=== PATIENT | female | born 1995 | race Caucasian/White ===

== ENCOUNTER → 2017-04-17 | Outpatient (CLI) | payer MEDICAID ==
--- NOTE | 2017-04-18 06:58 | Diagnostic Imaging Report ---
PROCEDURE: US OB SINGLE FETUS <14 WKS. TECHNIQUE: Multiple real-time grayscale images were obtained over the gravid uterus in various projections. INDICATION: Normal . Gestational age evaluation. COMPARISON: None. FINDINGS: Single live intrauterine with a crown rump length corresponding to an 8 week, 6 day gestation. heart rate 167 bpm. No free fluid. No mass or fluid collection in the adnexa. IMPRESSION: Single live intrauterine consistent with an 8 week, 6 day gestation. Dictated by: Dictated on workstation # [id number]
== END ==
LOC: RAD 15:43
PROVIDERS: ATTEND Family Medicine
DX: Z36.87 Encounter for antenatal screening for uncertain dates (principal); Z3A.08 8 weeks gestation of pregnancy
CPT/HCPCS: 76801

== ENCOUNTER → 2017-07-03 | Outpatient (CLI) | payer MEDICAID ==
--- NOTE | 2017-07-03 11:48 | Diagnostic Imaging Report ---
INDICATION: survey. TECHNIQUE: Multiple real-time grayscale images were obtained over the gravid uterus. COMPARISON: 04/17/2017. FINDINGS: There is a single live fetus in a cephalic presentation. The placenta is anterior. The amniotic fluid volume is normal. Cervical length is 4.9 cm. survey demonstrates kidneys, bladder, and stomach to be unremarkable. brain is unremarkable. The four-chamber heart view was not seen on today's study. There is a three-vessel cord. Cord insertion is unremarkable. The spine is unremarkable. Biometrical measurements are as follows: Biparietal 4.61 cm, age 20 weeks 0 days. Head circumference 17.11 cm, age 19 weeks 5 days. Abdominal circumference 14.91 cm, age 20 weeks 2 days. Femur length 3.48 cm, age 21 weeks 0 days. Sonographic estimate age: 20 weeks 2 days. Sonographic estimated date of delivery: 11-18-17. Estimated Weight: 354 gm (+/- 52 gm). LMP percentile: 78%. heart rate: 142 beats per minute. number: 1 of 1. IMPRESSION: Single live IUP at approximately 20 weeks gestational age, demonstrating normal interval growth when compared with prior study from April 2017. Dictated by: Dictated on workstation # [id number]
== END ==
LOC: RAD 10:05
PROVIDERS: ATTEND Family Medicine
DX: Z36.89 Encounter for other specified antenatal screening (principal); Z3A.20 20 weeks gestation of pregnancy
CPT/HCPCS: 76805

== ENCOUNTER → 2017-09-14 | Outpatient (CLI) | payer MEDICAID ==
--- NOTE | 2017-09-14 16:07 | Diagnostic Imaging Report ---
INDICATION: Follow-up four-chamber heart. TECHNIQUE: Multiple real-time grayscale images were obtained over the gravid uterus. COMPARISON: 07/03/2017. FINDINGS: There is a single live fetus in a cephalic presentation. The placenta is anterior. The amniotic fluid volume is normal. heart rate was recorded at 150 beats per minute. Four-chamber heart view is visualized today and unremarkable. IMPRESSION: Unremarkable limited OB ultrasound demonstrating a normal-appearing four-chamber heart view. Dictated by: Dictated on workstation # [id number]
== END ==
LOC: RAD 14:52
PROVIDERS: ATTEND Family Medicine
DX: Z34.93 Encounter for supervision of normal pregnancy, unspecified, third trimester (principal); Z3A.30 30 weeks gestation of pregnancy
CPT/HCPCS: 76816

== ENCOUNTER 2017-11-27 19:24 | Inpatient (IN) | payer MEDICAID ==
[2017-11-27] VITALS (14 sets, daily range): BP systolic 142–185; BP diastolic 77–113
[~2017-11-27] VITALS: Ht 167.6 cm; Wt 113.9 kg
[2017-11-27] MEDS ORDERED: LACTATED RINGERS 1,000 ML IV ONE (19:26)
--- OUTSIDE RECORDS SUMMARY | 2017-11-27 19:28 | XMS REPORT ---
Author Author CA BUTLER [facility] Address [address] [place] [address] Care Team Providers Care News Operations Manager Name Role Phone LUKE CA Unavailable PROBLEMS Type Condition ICD9-CM Code [id number]-FB Code Onset Dates Condition Status SNOMED Code Problem Gastro-esophageal reflux disease without esophagitis K21.9 Active 249720465 ALLERGIES No Information ENCOUNTERS Encounter Location Date Diagnosis [facility] [id number] [place] [address] 96941- 4561 Nov, [facility] [id number] [place] [address] 31589- 9858 Nov, [facility] [address] 18381- 6767 Nov, [facility] [id number] [place] [address] 14586- 4130 October, [facility] [id number] [place] [address] 89827- 5914 October, [facility] [id number] [place] [address] 85534- 5977 October, care, first in third trimester Z34.03 ; 33 weeks gestation of Z3A.33 and Hyperpigmented skin lesion L81.9 [facility] [id number] [place] [address] 18893- 1495 18 Sep, 2017 Third trimester Z34.93 ; Encounter for immunization Z23 and 30 weeks gestation of Z3A.30 [facility] [id number] [place] [address] 26393 -9052 17 Sep, 2017 Pharyngitis, unspecified etiology J02.9 [facility] [id number] [place] [address] 78283- 9159 Sep, Third trimester Z34.93 ; 28 weeks gestation of Z3A.28 and Abnormal ultrasound O28.[address] 63863- 9991 Sep, [address] 96523- 9163 Aug, Second trimester Z34.92 ; 27 weeks gestation of Z3A.27 ; Gastro-esophageal reflux disease without esophagitis K21.9 ; Diseases of the digestive system complicating , second trimester O99.612 and Cough R05 [facility] [address] [address] Jul, Viral URI J06.9 [facility] [address] 7[address] -5101 Jul, Body aches R52 and Viral URI J06.[address] 44488- 2513 08 Jul, 2017 Second trimester Z34.92 and 21 weeks gestation of Z3A.21 [id number] [place] [address] 21873- 2532 Jun, 16 weeks gestation of Z3A.16 and Second trimester Z34.92 [address] [id number] [place] [address] 10452- 1324 May, [address] 28471- 8947 May, 12 weeks gestation of Z3A.12 and Second trimester Z34.92 [address] [id number] [place] [address] 79446- 1220 May, [address] 49507- 3216 Apr, Normal , first Z34.00 and 8 weeks gestation of Z3A.08 [facility] [address], [place] [address] 08 Apr, 2017 Visit for TB skin test Z11.1 [facility] [address], [place] [address] 27 Mar, 2017 Screening, deficiency anemia, iron Z13.0 [facility] [id number] [place] [address] 44232- 0481 Mar, [facility] [id number] [address] 6654 Mar, [facility] [id number] [place] [address] 00216- 8399 Mar, [facility] [id number] [place] [address] 20106- 7952 Mar, Encounter for test, result unknown Z32.00 [facility] [address], [place] [address] 16 Feb, 2013 IMMUNIZATIONS No Known Immunizations SOCIAL HISTORY Never Assessed REASON FOR VISIT test (walk-in) PLAN OF CARE VITAL SIGNS MEDICATIONS Unknown Medications RESULTS Name Result Date Reference Range TEST, URINE (IN HOUSE) 2017-03-15 RESULTS Positive Lot # [id number] Control + Exp date 06/2018 PROCEDURES Procedure Date Ordered Result Body Site URINE TEST Mar 15, 2017 INSTRUCTIONS MEDICATIONS ADMINISTERED No Known Medications
--- OUTSIDE RECORDS SUMMARY | 2017-11-27 19:28 | XMS REPORT ---
Author Author ALMA LEMON Organization [facility] Address [address] [place] [address] Care Team Providers Care Termite Technician Name Role Phone ALMA LEMON Unavailable PROBLEMS Type Condition ICD9-CM Code NLW07-WE Code Onset Dates Condition Status SNOMED Code Problem Gastro-esophageal reflux disease without esophagitis K21.9 Active 076466279 ALLERGIES No Information ENCOUNTERS Encounter Location Date Diagnosis [facility] [address] 13117- 5638 Nov, [facility] [address] 38982- 1387 Nov, [facility] [address] 78707- 5254 Nov, Third trimester Z34.93 [facility] [address] 99272- 4777 October, Third trimester Z34.93 [facility] [address] [id number] October, Encounter for dental examination Z01.20 [facility] [address] 36058- 5930 October, Third trimester Z34.93 and 35 weeks gestation of Z3A.35 [facility] [address] 70022- 7245 October, Pigmented skin lesion suspicious for malignant neoplasm L81.9 and Acute bilateral low back pain without sciatica M54.5 [facility] [id number] [place] [address] 01774- 2232 October, care, first in third trimester Z34.03 ; 33 weeks gestation of Z3A.33 and Hyperpigmented skin lesion L81.[address] 39897- 1738 18 Sep, 2017 Third trimester Z34.93 ; Encounter for immunization Z23 and 30 weeks gestation of Z3A.30 [facility] [address] [address]81 17 Sep, 2017 Pharyngitis, unspecified etiology J02.9 [place] [address] 85028- 9342 04 Sep, 2017 Third trimester Z34.93 ; 28 weeks gestation of Z3A.28 and Abnormal ultrasound O28.[address] 13417- 8044 Sep, [address] 16844- 8098 Aug, Second trimester Z34.92 ; 27 weeks gestation of Z3A.27 ; Gastro-esophageal reflux disease without esophagitis K21.9 ; Diseases of the digestive system complicating , second trimester O99.612 and Cough R05 [facility] [address] 30[address] -[address]441 Jul, Viral URI J06.9 [facility] [address] 75537 -7265 Jul, Body aches R52 and Viral URI J06.[address] 34896- 8030 Jul, Second trimester Z34.92 and 21 weeks gestation of Z3A.[address] 69539- 7441 Jun, 16 weeks gestation of Z3A.16 and Second trimester Z34.[address] 57158- 2968 May, [facility] [address], [place] [address] May, 12 weeks gestation of Z3A.12 and Second trimester Z34.92 [facility] [address] [address] 25[address] May, [place] [id number] [place] [address] 85267- 2474 Apr, Normal , first Z34.00 and 8 weeks gestation of Z3A.08 [facility] [address], [place] [address] Apr, Visit for TB skin test Z11.1 [place] [id number] [place] [address] 86538- 9194 Mar, Screening, deficiency anemia, iron Z13.0 [place] [id number] [place] [address] 28362- 0229 Mar, [place] [id number] [place] [address] 49934- 8629 Mar, [place] [id number] [place] [address] 98090- 3047 Mar, [place] [id number] [place] [address] 00326- 2601 Mar, Encounter for test, result unknown Z32.00 [facility] [id number] [address] Feb, IMMUNIZATIONS No Known Immunizations SOCIAL HISTORY Never Assessed REASON FOR VISIT Lab results PLAN OF CARE VITAL SIGNS MEDICATIONS Unknown Medications RESULTS No Results PROCEDURES No Known procedures INSTRUCTIONS MEDICATIONS ADMINISTERED No Known Medications MEDICAL (GENERAL) HISTORY Type Description Date Medical History Anemia
--- OUTSIDE RECORDS SUMMARY | 2017-11-27 19:28 | XMS REPORT ---
Author Author ALMA LEMON Organization [facility] Address [address] [place] [address] Care Team Providers Care Regional Extension Service Specialist Name Role Phone ALMA LEMON Unavailable PROBLEMS Type Condition ICD9-CM Code KXJ68-VA Code Onset Dates Condition Status SNOMED Code Problem Gastro-esophageal reflux disease without esophagitis K21.9 Active 148541849 ALLERGIES No Known Allergies ENCOUNTERS Encounter Location Date Diagnosis [facility] [id number] [place] [address] 74653- 9018 Nov, [facility] [id number] [place] [address] 39376- 2212 Nov, [facility] [id number] [place] [address] 29316- 4964 Nov, [facility] [id number] [place] [address] 91129- 3422 October, [facility] [id number] [place] [address] 34409- 0558 October, [facility] [id number] [place] [address] 05279- 0883 October, Pigmented skin lesion suspicious for malignant neoplasm L81.9 and Acute bilateral low back pain without sciatica M54.5 [facility] [address] [place] [address] 79055- 4938 October, care, first in third trimester Z34.03 ; 33 weeks gestation of Z3A.33 and Hyperpigmented skin lesion L81.9 [facility] [address], [place] [address]- 139[address] 18 Sep, 2017 Third trimester Z34.93 ; Encounter for immunization Z23 and 30 weeks gestation of Z3A.30 [facility] [id number] [place] [address] 97833 -1114 17 Sep, 2017 Pharyngitis, unspecified etiology J02.9 [place] [id number] [place] [address] 97281- 6587 04 Sep, 2017 Third trimester Z34.93 ; 28 weeks gestation of Z3A.28 and Abnormal ultrasound O28.[address] 29258- 2751 Sep, [place] [id number] [place] [address] 20051- 6178 Aug, Second trimester Z34.92 ; 27 weeks gestation of Z3A.27 ; Gastro-esophageal reflux disease without esophagitis K21.9 ; Diseases of the digestive system complicating , second trimester O99.612 and Cough R05 [facility] [place] [id number] [place] [address] 35426 -4680 Jul, Viral URI J06.9 [facility] [id number] [place] [address] 13920 -5940 16 Jul, 2017 Body aches R52 and Viral URI J06.9 [address] [id number] [place] [address] 87453- 5918 08 Jul, 2017 Second trimester Z34.92 and 21 weeks gestation of Z3A.21 [place] [id number] [place] [address] 86847- 4126 Jun, 16 weeks gestation of Z3A.16 and Second trimester Z34.92 [place] [address] 50474- 8883 May, [id number] [place] [address] 68942- 0520 May, 12 weeks gestation of Z3A.12 and Second trimester Z34.92 [id number] [address]- 1623 May, [facility] [id number] [place] [address] 77286- 4075 Apr, Normal , first Z34.00 and 8 weeks gestation of Z3A.08 [facility] [address] [place] [address] 23973 -1466 Apr, Visit for TB skin test Z11.1 [place] [id number] [place] [address] 03631- 6197 Mar, Screening, deficiency anemia, iron Z13.0 [place] [id number] [place] [address] 10172- 1941 Mar, [place] [id number] [place] [address] 09862- 4463 Mar, [place] [id number] [place] [address] 86098- 1152 Mar, [facility] [id number] [place] [address] 85147- 0067 Mar, Encounter for test, result unknown Z32.00 [place] [id number] [place] [address] 75599- 2088 Feb, IMMUNIZATIONS No Known Immunizations SOCIAL HISTORY Never Assessed REASON FOR VISIT PLAN OF CARE VITAL SIGNS MEDICATIONS Medication Instructions Dosage Frequency Start Date End Date Duration Status 28-0.8 MG Active RESULTS No Results PROCEDURES No Known procedures INSTRUCTIONS MEDICATIONS ADMINISTERED No Known Medications
--- OUTSIDE RECORDS SUMMARY | 2017-11-27 19:28 | XMS REPORT ---
Author Author ALMA LEMON Organization [facility] Address [address] [place] [address] Care Team Providers Care Assistant Professor Of Music Name Role Phone ALMA LEMON Unavailable PROBLEMS Type Condition ICD9-CM Code OLW08-MY Code Onset Dates Condition Status SNOMED Code Problem Gastro-esophageal reflux disease without esophagitis K21.9 Active 700407225 ALLERGIES No Information ENCOUNTERS Encounter Location Date Diagnosis [facility] [address] 02184- 0517 Nov, [facility] [address] 65078- 4002 Nov, [facility] [address] 75983- 2347 Nov, Third trimester Z34.93 [facility] [address] 27437- 9931 October, Third trimester Z34.93 [facility] [address] [id number] October, Encounter for dental examination Z01.20 [facility] [address] 87659- 7405 October, Third trimester Z34.93 and 35 weeks gestation of Z3A.35 [facility] [address] 70369- 3381 October, Pigmented skin lesion suspicious for malignant neoplasm L81.9 and Acute bilateral low back pain without sciatica M54.5 [facility] [id number] [place] [address] 37633- 8528 October, care, first in third trimester Z34.03 ; 33 weeks gestation of Z3A.33 and Hyperpigmented skin lesion L81.[address] 34704- 5828 18 Sep, 2017 Third trimester Z34.93 ; Encounter for immunization Z23 and 30 weeks gestation of Z3A.30 [facility] [address] [address] -5904 17 Sep, 2017 Pharyngitis, unspecified etiology J02.9 [place] [address] 12416- 7403 04 Sep, 2017 Third trimester Z34.93 ; 28 weeks gestation of Z3A.28 and Abnormal ultrasound O28.[address] 81329- 5732 Sep, [address] 96689- 3974 Aug, Second trimester Z34.92 ; 27 weeks gestation of Z3A.27 ; Gastro-esophageal reflux disease without esophagitis K21.9 ; Diseases of the digestive system complicating , second trimester O99.612 and Cough R05 [facility] [address] 98742 -6162 Jul, Viral URI J06.9 [facility] [address] 16224 -7742 Jul, Body aches R52 and Viral URI J06.[address] 71976- 2575 Jul, Second trimester Z34.92 and 21 weeks gestation of Z3A.[address] 27375- 3015 Jun, 16 weeks gestation of Z3A.16 and Second trimester Z34.[address] 49342- 4747 May, [facility] [address], [place] [address]- 5[address] May, 12 weeks gestation of Z3A.12 and Second trimester Z34.92 [facility] [address], [place] [address]- 8738 May, [place] [id number] [place] [address] 20122- 6786 Apr, Normal , first Z34.00 and 8 weeks gestation of Z3A.08 [facility] [address], [place] [address] Apr, Visit for TB skin test Z11.1 [place] [id number] [place] [address] 26377- 1209 Mar, Screening, deficiency anemia, iron Z13.0 [place] [id number] [place] [address] 60073- 6910 Mar, [place] [id number] [place] [address] 28843- 4463 Mar, [place] [id number] [place] [address] 35114- 4037 Mar, [place] [id number] [place] [address] 98128- 6628 Mar, Encounter for test, result unknown Z32.00 [facility] [id number] [place] [address] 90963- 7875 Feb, IMMUNIZATIONS No Known Immunizations SOCIAL HISTORY Never Assessed REASON FOR VISIT PLAN OF CARE VITAL SIGNS MEDICATIONS Unknown Medications RESULTS No Results PROCEDURES No Known procedures INSTRUCTIONS MEDICATIONS ADMINISTERED No Known Medications MEDICAL (GENERAL) HISTORY Type Description Date Medical History Anemia
--- OUTSIDE RECORDS SUMMARY | 2017-11-27 19:28 | XMS REPORT ---
Author Author ALMA LEMON Organization [facility] Address [address] [place] [address] Care Team Providers Care Client Insights Consultant Name Role Phone ALMA LEMON Unavailable PROBLEMS Type Condition ICD9-CM Code JDD70-HG Code Onset Dates Condition Status SNOMED Code Problem Gastro-esophageal reflux disease without esophagitis K21.9 Active 484272652 ALLERGIES No Information ENCOUNTERS Encounter Location Date Diagnosis [facility] [address] [address]- [address]109 Nov, [facility] [address] 41868- 4098 Nov, [facility] [id number] [place] [address] 63618- 1443 Nov, [facility] [id number] [place] [address] 96176- 1401 October, Third trimester Z34.93 [facility] [address] [id number] 24 Oct, 2017 Encounter for dental examination Z01.20 [facility] [id number] [place] [address] 58811- 3207 23 Oct, 2017 Third trimester Z34.93 and 35 weeks gestation of Z3A.35 [facility] [id number] [place] [address] 86496- 6209 October, Pigmented skin lesion suspicious for malignant neoplasm L81.9 and Acute bilateral low back pain without sciatica M54.5 [facility] [id number] [place] [address] 18088- 8891 October, care, first in third trimester Z34.03 ; 33 weeks gestation of Z3A.33 and Hyperpigmented skin lesion L81.[address] 29340- 0817 18 Sep, 2017 Third trimester Z34.93 ; Encounter for immunization Z23 and 30 weeks gestation of Z3A.30 [facility] [address] 17[address] -1724 17 Sep, 2017 Pharyngitis, unspecified etiology J02.[address] 16200- 8185 04 Sep, 2017 Third trimester Z34.93 ; 28 weeks gestation of Z3A.28 and Abnormal ultrasound O28.[address] 30620- 8415 Sep, [address] 51417- 8144 Aug, Second trimester Z34.92 ; 27 weeks gestation of Z3A.27 ; Gastro-esophageal reflux disease without esophagitis K21.9 ; Diseases of the digestive system complicating , second trimester O99.612 and Cough R05 [facility] [address] [address] -0608 Jul, Viral URI J06.9 [facility] [address] 77[address] -5315 Jul, Body aches R52 and Viral URI J06.[address] 72655- 7143 08 Jul, 2017 Second trimester Z34.92 and 21 weeks gestation of Z3A.[address] 60884- 8672 Jun, 16 weeks gestation of Z3A.16 and Second trimester Z34.[address] 55198- 5599 May, [facility] [address] [address]- 0257 May, 12 weeks gestation of Z3A.12 and Second trimester Z34.92 [facility] [address] [address]- 5273 May, [facility] [id number] [place] [address] 89331- 0175 Apr, Normal , first Z34.00 and 8 weeks gestation of Z3A.08 [facility] IN [facility] [address] [place] [address] 98281 -5464 Apr, Visit for TB skin test Z11.1 [place] [id number] [place] [address] 24989- 9876 Mar, Screening, deficiency anemia, iron Z13.0 [place] [id number] [place] [address] 20863- 0332 Mar, [place] [id number] [place] [address] 18264- 9958 Mar, [place] [id number] [place] [address] 97178- 3291 Mar, [facility] [id number] [place] [address] 75763- 2583 Mar, Encounter for test, result unknown Z32.00 [facility] [id number] [place] [address] 46280- 0696 Feb, IMMUNIZATIONS No Known Immunizations SOCIAL HISTORY Never Assessed 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
[2017-11-27] MEDS ORDERED: PREN1TAB19 PO (19:56)
[2017-11-27] MEDS ORDERED: AMPICILLIN INJECTION 2,000 MG in NS (IVPB) 50 ML IV SCH (19:59)
[2017-11-27] MEDS ORDERED: MINERAL OIL CONCENTRATE 99.9% 15 ML UDC TOP PRN (20:00)
[2017-11-27] MEDS ORDERED: LACTATED RINGERS 1,000 ML IV SCH (20:02)
[2017-11-27 20:09] LABS: BASOPHILS % (AUTO) 0 % (0-10); EOSINOPHILS % (AUTO) 0 % (0-10); HEMATOCRIT 34 % (35-52); HEMOGLOBIN 11.5 G/DL (11.5-16.0); LYMPHOCYTES # (AUTO) 1.8 X 10^3 (1.0-4.0); LYMPHOCYTES % (AUTO) 17 % (12-44); MEAN CORPUSCULAR HEMOGLOBIN 30 PG (25-34); MEAN CORPUSCULAR HGB CONC 34 G/DL (32-36); MEAN CORPUSCULAR VOLUME 88 FL (80-99); MONOCYTES # (AUTO) 0.7 X 10^3 (0.0-1.0); MONOCYTES % (AUTO) 6 % (0-12); NEUTROPHILS # (AUTO) 7.8 X 10^3 (1.8-7.8); NEUTROPHILS % (AUTO) 76 % (42-75); PLATELET COUNT 241 10^3/uL (130-400); RED BLOOD COUNT 3.88 10^6/uL (4.35-5.85); RED CELL DISTRIBUTION WIDTH 14.6 % (10.0-14.5); WHITE BLOOD COUNT 10.2 10^3/uL (4.3-11.0)
[2017-11-27] MEDS ORDERED: MISOPROSTOL 100 MCG (CYTOTEC) TAB PO NR (20:15)
[2017-11-27] MEDS ORDERED: TERBUTALINE INJ 1 MG/ML (BRETHINE) AMP SC PRN (20:15)
[2017-11-27] MEDS: D5 LR IV SOLUTION 1,000 ML IV SCH (20:39)
[2017-11-27] MEDS: CATHETER FLUSH 10 ML SYR IV SCH (21:03)
[2017-11-28] VITALS (71 sets, daily range): BP systolic 122–172; BP diastolic 5–92
[2017-11-28] MEDS ORDERED: MISOPROSTOL 100 MCG (CYTOTEC) TAB PO SCH (00:15)
[2017-11-28 00:17] LABS: BILIRUBIN,URINE NEGATIVE (NEGATIVE); COLOR,URINE YELLOW; GLUCOSE, URINE (UA) NEGATIVE (NEGATIVE); KETONES,URINE NEGATIVE (NEGATIVE); LEUKOCYTE ESTERASE ,URINE 3+ (NEGATIVE); NITRITE,URINE POSITIVE (NEGATIVE); PH,URINE 6 (5-9); PROTEIN,URINE 3+ (NEGATIVE); UROBILINOGEN,URINE NORMAL (NORMAL)
[2017-11-28 00:25] LABS: CLARITY,URINE SLIGHTLY CLOUDY
[2017-11-28 00:29] LABS: BACTERIA,URINE MODERATE /HPF; RBC,URINE 0-2 /HPF; YEAST,URINE FEW /HPF
[2017-11-28] MEDS: AMPICILLIN INJECTION 1,000 MG in NS (IVPB) 50 ML IV SCH ×6 (01:03→21:07)
[2017-11-28] MEDS: CATHETER FLUSH 10 ML SYR IV SCH ×2 (06:02→19:43)
[2017-11-28] MEDS: D5 LR IV SOLUTION 1,000 ML IV SCH ×3 (06:02→21:42)
[2017-11-28] MEDS ORDERED: OXYTOCIN/NORMAL SALINE 500 ML IV ONE (08:52)
--- NOTE | 2017-11-28 09:06 | Labor Progress Note ---
Labor Progress Note Labor Progress Note Date Seen by Provider: Nov 28, 2017 Time Seen by Provider: 08:45 Subjective: Pt is breathing through contractions. Objective: Cervical exam: 5-6cm Consistency: soft Position: 0 Presentation: vtx heart tones: [150] beats per minute, [normal] variability, reactive, variable decel w/ placement of FSE w/ recovery Assessment/Plan: Irene Sanchez is a 22 /Para 1/ 0 AROM, scant fluid - scalp electrode placed IFM/TOCO Continue pitocin Anesthesia: IV pain medicine at this time. Anticipate vaginal delivery. Vitals - Labs Vital Signs - I&O Vital Signs Date Time Temp Pulse Resp B/P (MAP) Pulse Ox O2 Delivery O2 Flow Rate FiO2 11/28/17 08:00 93 18 141/84 (103) Room Air 11/28/17 07:36 97.6 11/28/17 07:04 78 18 148/77 (100) Room Air 11/28/17 06:04 84 18 158/82 (107) Room Air 11/28/17 05:04 88 18 149/78 (101) Room Air 11/28/17 04:03 90 18 146/86 (106) Room Air 11/28/17 03:04 98.5 85 18 146/85 (105) Room Air 11/28/17 02:01 96 18 150/89 (109) Room Air 11/28/17 01:17 93 20 147/84 (105) Room Air 11/28/17 00:31 87 18 155/90 (111) Room Air 11/28/17 00:03 98.3 82 18 170/79 (109) Room Air 11/27/17 23:52 79 18 185/113 (137) Room Air 11/27/17 23:42 82 18 168/94 (118) Room Air 11/27/17 23:40 86 18 170/95 (120) Room Air 11/27/17 23:36 87 18 164/88 (113) Room Air 11/27/17 23:34 86 18 174/89 (117) Room Air 11/27/17 22:33 79 18 158/90 (112) Room Air 11/27/17 22:13 77 18 143/84 (103) Room Air 11/27/17 21:43 80 18 142/81 (101) Room Air 11/27/17 21:14 77 20 143/77 (99) Room Air 11/27/17 20:48 76 20 159/78 (105) Room Air 11/27/17 20:43 98.4 74 18 173/92 (119) Room Air 11/27/17 20:13 78 20 142/88 (106) Room Air 11/27/17 19:42 80 18 146/91 (109) Room Air 11/27/17 19:13 88 18 158/92 (114) Room Air I & O 11/28/17 07:00 Intake Total 3350 ml Balance 3350 ml Labs Laboratory Tests 11/27/17 19:35: White Blood Count 10.2, Red Blood Count 3.88L, Hemoglobin 11.5, Hematocrit 34L, Mean Corpuscular Volume 88, Mean Corpuscular Hemoglobin 30, Mean Corpuscular Hemoglobin Concent 34, Red Cell Distribution Width 14.6H, Platelet Count 241, Mean Platelet Volume 11.0H, Neutrophils (%) (Auto) 76H, Lymphocytes (%) (Auto) 17, Monocytes (%) (Auto) 6, Eosinophils (%) (Auto) 0, Basophils (%) (Auto) 0, Neutrophils # (Auto) 7.8, Lymphocytes # (Auto) 1.8, Monocytes # (Auto) 0.7, Eosinophils # (Auto) 0.0, Basophils # (Auto) 0.0 11/27/17 23:55: Urine Color YELLOW, Urine Clarity SLIGHTLY CLOUDY, Urine pH 6, Urine Specific [place] 1.015L, Urine Protein 3+H, Urine Glucose (UA) NEGATIVE, Urine Ketones NEGATIVE, Urine Nitrite POSITIVEH, Urine Bilirubin NEGATIVE, Urine Urobilinogen NORMAL, Urine Leukocyte Esterase 3+H, Urine RBC (Auto) 2+H, Urine RBC 0-2, Urine WBC 10-25H, Urine Squamous Epithelial Cells 2-5, Urine Crystals NONE, Urine Bacteria MODERATEH, Urine Casts NONE, Urine Mucus SMALLH, Urine Yeast FEWH , Urine Culture Indicated YES Microbiology 11/27/17 Urine Culture - Preliminary, Resulted Sent To CA Baum DO Nov 28, 2017 09:05
[2017-11-28] MEDS ORDERED: BUTORPHANOL INJ 2 MG/ML (STADOL) VIAL ONE (09:09)
[2017-11-28] MEDS ORDERED: BUTORPHANOL INJ 2 MG/ML (STADOL) VIAL IV NR (09:15)
[2017-11-28] MEDS ORDERED: OXYTOCIN/NORMAL SALINE 500 ML IV SCH (12:20)
[2017-11-28] MEDS ORDERED: BUTORPHANOL INJ 2 MG/ML (STADOL) VIAL IV ONE (14:30)
[2017-11-28] MEDS ORDERED: SUFENTA 0.6MCG/ML BUPIVA 0.125 100 ML ONE (17:21)
[2017-11-28] MEDS ORDERED: BUPIVACAINE 0.25% 30 ML (SENSORCAINE) VIAL ONE (17:38)
[2017-11-28] MEDS ORDERED: fentaNYL INJECTION 100 MCG/2 ML AMP ONE (17:38)
[2017-11-28] MEDS ORDERED: LACTATED RINGERS 1,000 ML IV ONE (18:09)
[2017-11-28] MEDS ORDERED: ONDANSETRON 4 MG/2 ML (SDV) Z0FRAN IV PRN (18:15)
[2017-11-28] MEDS ORDERED: EPIDURAL (SUFENTA 0.6MCG/ML BUPIVA 0.125%) 100 ML BAG EPI SCH (18:15)
[2017-11-28] MEDS ORDERED: CATHETER FLUSH 10 ML SYR IV PRN (18:15)
[2017-11-28] MEDS ORDERED: NALOXONE 0.4 MG/ML 1 ML (NARCAN) VIAL IV PRN (18:15)
[2017-11-28] MEDS ORDERED: LIDOCAINE/EPI 2% 1:200,00 (XYLOCAINE) 10 ML VIAL ONE (22:26)
[2017-11-29] VITALS (10 sets, daily range): BP systolic 113–185; BP diastolic 70–89
[2017-11-29] MEDS ORDERED: ceFAZolin 2 GM IV Premixed 50 ML IV ONE (00:45)
[2017-11-29] MEDS ORDERED: TERBUTALINE INJ 1 MG/ML (BRETHINE) AMP ONE (00:45)
[2017-11-29] MEDS ORDERED: AZITHROMYCIN INJECTION 500 MG in NS (IVPB) 250 ML IV ONE (00:45)
[2017-11-29] MEDS ORDERED: ceFAZolin 2 GM IV Premixed 50 ML ONE (00:49)
[2017-11-29] MEDS ORDERED: AZITHROMYCIN 500 MG (ZITHROMAX) VIAL ONE ×2 (00:49→00:50)
[2017-11-29] MEDS ORDERED: NS (IVPB) 50 ML ONE (00:50)
[2017-11-29] MEDS: LACTATED RINGERS 1,000 ML IV SCH ×2 (00:50→02:39)
[2017-11-29] MEDS ORDERED: METOCLOPRAMIDE INJ 10 MG/2 ML (REGLAN) ONE (00:51)
[2017-11-29] MEDS ORDERED: raNItidine 50 MG/2 ML INJ (ZANTAC) ONE (00:52)
--- NOTE | 2017-11-29 00:54 | History & Physical-OB ---
OB - Chief Complaint & HPI Date/Time Date of Admission: Date of Admission: Nov 27, 2017 at 19:24 Time Seen by Provider: 12:25 Chief Complaint/History OB-Reason for Admission/Chief: Induction of Labor (Postdates) Hx : 1 Expected Date of Delivery: Nov 23, 2017 Gestational Age in Weeks: 40 Gestational Age in Days: 6 Indication for induction: post dates History of Labs O+, Ab neg, Rub Imm, GC/Chyl neg, RPR/HepB/HIV NR GBS + Allergies and Home Medications Allergies Coded Allergies: No Known Drug Allergies (Unverified , 11/27/17) Home Medications Vit/Iron Fumarate/FA 1 Each Tablet, 1 EACH PO DAILY, (Reported) Patient Home Medication List Home Medication List Reviewed: Yes OB - History Hx of Present Care: Yes Ultrasounds: Normal mid trimester US Obstetrical Complications: None Medical Complications: None Information Induced Hypertension: No Maternal Gestational Diabetes: No Hemorrhage: No Obstetrical History Hx : 1 Patient Past Medical History None Social History/Family History HIV/AIDS: No Recent Infectious Disease Expo: No Sexually Transmitted Disease: No Alcohol Use: Denies Use Recreational Drug Use: No Smoking Cessation: Never smoker Immunizations Tetanus Booster (TDap): Less than 5yrs (09/20/17) Rubella: immune RPR/VDRL: Negative GBS Status: Positive HBsAG: Negative OB - Admission Exam Physical Exam Vitals: Vital Signs 11/28/17 11/28/17 20:00 21:00 Temp 98.9 Pulse 86 Resp 18 B/P (MAP) 159/82 (107) Pulse Ox 98 O2 Delivery Room Air Heart: Rhythm Normal Lungs: Clear Abdomen: Gravid Cervical Dilatation: 6cm Effacement: 100% Station: -1 Membranes: Ruptured Amniotic Fluid: Clear Heart Rate: 140's Accelerations: Accelerations Present Decelerations: No Decelerations Short Term Variability: Present Contractions on Admission: < 5 Minutes Apart Cook Scoring Tool (Modified) Dilation (cm): 1-2cm (1) Effacement (%): 31-51% (1) Descent/Station: -1,0 (2) Cervix Consistency: Soft (2) Cervix Position: Middle/Mid-Position (1) Subtract 1 point for: Nulliparity (-1) Cook Score: 7 OB - Assessment/Plan/Diagnosis Assessment Assessment: group B positive strep, induction of labor Admission Dx Post date IOL Admission Status: Inpatient Order (span 2 midnights) Reason for Inpatient Admission: Labor Plan Plan: Induction Induction Method: AROM Other Plan 22 yo G1 @ 40.5 wga here for IOL for post dates Plan - AROM in AM by Dr Pino - Pitocin protocol - Ampicillin for + GBS Copy Copies To 1: ALMA LEMON MD, HOLLY R MD Nov 29, 2017 00:54
--- NOTE | 2017-11-29 00:58 | Labor Progress Note ---
Labor Progress Note Labor Progress Note Date Seen by Provider: Nov 29, 2017 Time Seen by Provider: 10:05 Called by nurse at 2105 that patient has cervical lip and would like me to the hospital 2200: Started pushing with patient and pushed for 2 hrs 15 mins without much progress. Vaccum assist is not an option due to station. Patient is exhausted and desires to proceed with C/section. 0040: Dr Bass was called for primary C/section. Vitals - Labs Vital Signs - I&O Vital Signs Date Time Temp Pulse Resp B/P (MAP) Pulse Ox O2 Delivery O2 Flow Rate FiO2 11/28/17 21:00 86 18 159/82 (107) 98 Room Air 11/28/17 20:45 86 18 154/71 (98) 98 Room Air 11/28/17 20:40 83 18 143/77 (99) 98 Room Air 11/28/17 20:35 89 18 139/78 (98) 98 Room Air 11/28/17 20:30 85 18 144/72 (96) 98 Room Air 11/28/17 20:25 95 18 141/73 (95) 98 Room Air 11/28/17 20:20 85 18 138/72 (94) 98 Room Air 11/28/17 20:15 94 18 141/68 (92) 98 Room Air 11/28/17 20:10 84 18 142/72 (95) 99 Room Air 11/28/17 20:05 83 18 141/75 (97) 98 Room Air 11/28/17 20:00 98.9 86 18 142/75 (97) 99 Room Air 11/28/17 19:55 84 18 150/79 (102) 99 Room Air 11/28/17 19:45 83 18 146/73 (97) 98 Room Air 11/28/17 19:30 80 18 142/72 (95) 98 Room Air 11/28/17 19:15 72 18 139/69 (92) 98 Room Air 11/28/17 19:00 82 18 132/5 (47) 98 Room Air 11/28/17 18:45 85 18 134/66 (88) 98 Room Air 11/28/17 18:30 79 18 136/66 (89) 97 Room Air 11/28/17 18:25 87 20 139/72 (94) 97 Room Air 6/26/18 18:20 94 20 136/72 (93) 98 Room Air 11/28/17 18:15 97.9 90 18 136/66 (89) 97 Room Air 11/28/17 18:10 86 20 137/67 (90) 97 Room Air 11/28/17 18:05 87 20 137/68 (91) 98 Room Air 11/28/17 18:00 83 18 157/77 (103) 98 Room Air 11/28/17 17:55 87 20 172/79 (110) 98 Room Air 11/28/17 17:50 78 20 156/81 (106) 99 Room Air 11/28/17 17:45 18 Room Air 11/28/17 17:30 93 18 169/85 (113) Room Air 11/28/17 17:15 96 18 166/92 (116) Room Air 11/28/17 17:00 82 18 162/89 (113) Room Air 11/28/17 16:45 18 Room Air 11/28/17 16:30 85 18 147/76 (99) Room Air 11/28/17 16:15 82 18 144/74 (97) Room Air 11/28/17 16:00 80 18 145/76 (99) Room Air 11/28/17 15:45 88 18 138/81 (100) Room Air 11/28/17 15:30 85 18 147/81 (103) Room Air 11/28/17 15:15 90 18 157/89 (111) Room Air 11/28/17 15:00 82 18 140/76 (97) Room Air 11/28/17 14:45 107 20 143/79 (100) Room Air 11/28/17 14:30 80 20 122/61 (81) Room Air 11/28/17 14:15 86 20 122/66 (84) Room Air 11/28/17 14:00 79 20 158/90 (112) Room Air 11/28/17 13:45 85 20 158/91 (113) Room Air 11/28/17 13:30 91 20 167/92 (117) Room Air 11/28/17 13:15 85 20 159/82 (107) Room Air 11/28/17 13:00 96 18 151/82 (105) Room Air 11/28/17 12:45 85 18 151/82 (105) Room Air 6/26/18 12:30 86 18 154/84 (107) Room Air 11/28/17 12:12 97.3 11/28/17 12:00 85 18 147/84 (105) Room Air 11/28/17 11:00 83 18 138/85 (102) Room Air 11/28/17 10:00 80 18 139/74 (95) Room Air 11/28/17 09:00 86 18 165/92 (116) Room Air 11/28/17 08:00 93 18 141/84 (103) Room Air 11/28/17 07:36 97.6 11/28/17 07:04 78 18 148/77 (100) Room Air 11/28/17 06:04 84 18 158/82 (107) Room Air 11/28/17 05:04 88 18 149/78 (101) Room Air 11/28/17 04:03 90 18 146/86 (106) Room Air 11/28/17 03:04 98.5 85 18 146/85 (105) Room Air 11/28/17 02:01 96 18 150/89 (109) Room Air 11/28/17 01:17 93 20 147/84 (105) Room Air Labs Microbiology 11/27/17 Urine Culture - Preliminary, Resulted Sent To ALMA Pete MD Nov 29, 2017 00:58
[2017-11-29] MEDS ORDERED: raNItidine INJECTION 50 MG in NS (IVPB) 50 ML IV ONE (01:00)
[2017-11-29] MEDS ORDERED: CITRIC ACID/SOB CIT (BICITRA) 30 ML UDC PO ONE (01:00)
[2017-11-29] MEDS ORDERED: METOCLOPRAMIDE INJ 10 MG/2 ML (REGLAN) IV ONE (01:00)
[2017-11-29] MEDS ORDERED: fentaNYL INJECTION 100 MCG/2 ML AMP ONE (01:10)
[2017-11-29] MEDS ORDERED: BUPIVACAINE 0.25% 30 ML (SENSORCAINE) VIAL ONE (01:10)
[2017-11-29] MEDS ORDERED: LIDOCAINE PF 2% 5 ML (XYLOCAINE) VIAL ONE ×3 (01:10→02:32)
[2017-11-29] MEDS ORDERED: KETOROLAC 30 MG/ML VIAL ONE (01:15)
[2017-11-29] MEDS ORDERED: ONDANSETRON 4 MG/2 ML (SDV) Z0FRAN ONE (01:15)
[2017-11-29] MEDS ORDERED: DEXAMETHASONE 10 MG/ML (DECADRON) 1 ML VIAL ONE (01:15)
[2017-11-29] MEDS ORDERED: OXYTOCIN/NORMAL SALINE 500 ML IV SCH (01:42)
[2017-11-29] MEDS ORDERED: HYDROcodone/APAP 5 MG/325 MG (LORTAB) TAB PO PRN (01:45)
[2017-11-29] MEDS ORDERED: MEASLES,MUMPS,RUBELLA 1 EA INJ SC SCH (01:45)
[2017-11-29] MEDS ORDERED: TETANUS,DIPTH,PERTUSS P/F (BOOSTRIX) 0.5 ML VIAL IM SCH (01:45)
[2017-11-29] MEDS ORDERED: HYDROmorphone 1 MG/ML (DILAUDID) 1 ML SYRINGE IV PRN (01:45)
[2017-11-29] MEDS: KETOROLAC 30 MG/ML VIAL IVP SCH ×4 (02:33→21:48)
--- NOTE | 2017-11-29 02:36 | Cesarean Section Operative ---
Procedure Procedure Note Pre-operative Diagnosis: Irene Sanchez is a 22 /Para 1 /0 ,Gestational Age 40 6/7 weeks, failure to descend Post-operative Diagnosis: same, Persistent OP presentation, meconium stained fluid, Procedure: Primary low transverse section Physician: ELIEZER ALVA Estimated blood loss: 600 mL Disposition: stable Findings: Viable female , Apgars 8/9, weight 8#, intact placenta, 3vc, normal appearing uterus, tubes, and ovaries. Indications:Irene Sanchez is a22 /Para 1 /0 ,Gestational Age 40 6/7 weeks, failure to descend/arrest of descent I was asked to consult by Dr. Mackey. Ms. Sanchez was admitted for induction of labor last evening at 40 5/7 weeks. Misoprostol was used. Ampicillin for GBS prophylaxis. She had AROM and then oxytocin augmentation. She reached complete dilation and then pushed for 2 1/2 hours without delivery. Due to failure to descent/arrest of descent, section was planned. Procedure Details: The patient was seen in pre-op and the procedure was discussed with the patient in full, including the risks, benefits, and alternatives. All questions were answered. The patient was taken to the operating room and a time out was performed, verifying patient and procedure. After spinal anesthesia was placed by our anesthesia colleagues, the patient was placed in the dorsal supine with leftward tilt for uterine displacement.~ Her abdomen was then prepped and draped in the typical sterile fashion. A Pfannenstiel skin incision was made using a scalpel and carried down through the underlying fascia. The fascia was incised in the midline and tented up using Sonu clamps. On both the inferior and superior fascia side the rectus muscle was dissected off bluntly and sharply using Gracia scissors. The peritoneum was identified and entered bluntly in the midline. This was then stretched laterally using manual strength. After entering the abdominal cavity and confirming lack of intraperitoneal adhesions, a large Vinnie retractor was placed and the lower uterine segment was visualized. A scalpel was utilized to make a low transverse uterine incision. There was meconium stained fluid noted upon entry into the uterine cavity. The 's head was grasped and brought to the level of the incision. It was wedged into the pelvis and had to be lifted out of the pelvis for delivery. The head was noted to be in OP presentation was a large amount of caput and molding noted. Fundal pressure was applied and was delivered without difficulty. Mouth and nares were suctioned with bulb suction. After the umbilical cord was clamped and cut, the was handed off to the pediatric staff. A sample of cord blood was then obtained. The placenta was delivered intact via uterine massage. The uterus was exteriorized and cleared of all clots and debris. The uterine incision was closed using 0 Vicryl in a running locked fashion. A second imbricated layer was placed using 0 Vicryl in a running fashion as well. The uterus was flexed forward and the posterior rectouterine space was inspected and cleared of all clots and debris. Again the hysterotomy site was examined and hemostasis was observed. The bilateral tubes and ovaries appeared normal. The uterus was placed back into the abdominal cavity and abdominal gutters were cleared of all clots and debris. A final check of the uterine incision showed it to be hemostatic. Intercede was placed over the incision. The peritoneum was closed using 3-0 Vicryl in a running fashion. The fascia was closed with 0 Vicryl in a running fashion. The subcutaneous space was hemostatic, and irrigated. The subcutaneous space was closed with 3-0 Plain in several single interrupted stitches. The skin was then closed using 4-0 Monocryl in a running subcuticular fashion. The skin edges were reapproximated together and were hemostatic. A pressure dressing was applied. All sponge, lap and needle counts were correct at the end of the procedure per nursing. Vitals - Labs Vital Signs - I&O Vital Signs Date Time Temp Pulse Resp B/P (MAP) Pulse Ox O2 Delivery O2 Flow Rate FiO2 11/29/17 01:15 99.5 120 18 175/85 (115) 97 Room Air 11/29/17 01:00 116 18 157/89 (111) Room Air 11/29/17 00:45 116 18 167/80 (109) Room Air 11/29/17 00:15 99.3 96 18 185/86 (119) 97 Room Air 11/29/17 00:00 91 18 154/85 (108) Room Air 11/28/17 23:45 91 18 150/77 (101) Room Air 11/28/17 23:30 99.3 85 18 141/69 (93) 97 Room Air 11/28/17 23:15 96 18 141/71 (94) Room Air 11/28/17 23:00 86 18 151/71 (97) Room Air 11/28/17 22:45 100 18 134/85 (101) Room Air 11/28/17 22:30 90 18 148/67 (94) 97 Room Air 11/28/17 22:15 99.5 93 18 158/78 (104) 97 Room Air 11/28/17 22:00 93 18 156/79 (104) 97 Room Air 11/28/17 21:45 96 18 164/88 (113) 96 Room Air 11/28/17 21:30 91 18 148/80 (102) 96 Room Air 11/28/17 21:15 90 18 154/74 (100) 97 Room Air 11/28/17 21:00 86 18 159/82 (107) 98 Room Air 11/28/17 20:45 86 18 154/71 (98) 98 Room Air 11/28/17 20:40 83 18 143/77 (99) 98 Room Air 11/28/17 20:35 89 18 139/78 (98) 98 Room Air 11/28/17 20:30 85 18 144/72 (96) 98 Room Air 11/28/17 20:25 95 18 141/73 (95) 98 Room Air 11/28/17 20:20 85 18 138/72 (94) 98 Room Air 11/28/17 20:15 94 18 141/68 (92) 98 Room Air 11/28/17 20:10 84 18 142/72 (95) 99 Room Air 11/28/17 20:05 83 18 141/75 (97) 98 Room Air 11/28/17 20:00 98.9 86 18 142/75 (97) 99 Room Air 11/28/17 19:55 84 18 150/79 (102) 99 Room Air 11/28/17 19:45 83 18 146/73 (97) 98 Room Air 11/28/17 19:30 80 18 142/72 (95) 98 Room Air 11/28/17 19:15 72 18 139/69 (92) 98 Room Air 11/28/17 19:00 82 18 132/5 (47) 98 Room Air 11/28/17 18:45 85 18 134/66 (88) 98 Room Air 6/26/18 18:30 79 18 136/66 (89) 97 Room Air 11/28/17 18:25 87 20 139/72 (94) 97 Room Air 11/28/17 18:20 94 20 136/72 (93) 98 Room Air 11/28/17 18:15 97.9 90 18 136/66 (89) 97 Room Air 11/28/17 18:10 86 20 137/67 (90) 97 Room Air 11/28/17 18:05 87 20 137/68 (91) 98 Room Air 11/28/17 18:00 83 18 157/77 (103) 98 Room Air 11/28/17 17:55 87 20 172/79 (110) 98 Room Air 11/28/17 17:50 78 20 156/81 (106) 99 Room Air 11/28/17 17:45 18 Room Air 11/28/17 17:30 93 18 169/85 (113) Room Air 11/28/17 17:15 96 18 166/92 (116) Room Air 11/28/17 17:00 82 18 162/89 (113) Room Air 11/28/17 16:45 18 Room Air 11/28/17 16:30 85 18 147/76 (99) Room Air 11/28/17 16:15 82 18 144/74 (97) Room Air 11/28/17 16:00 80 18 145/76 (99) Room Air 11/28/17 15:45 88 18 138/81 (100) Room Air 11/28/17 15:30 85 18 147/81 (103) Room Air 11/28/17 15:15 90 18 157/89 (111) Room Air 11/28/17 15:00 82 18 140/76 (97) Room Air 11/28/17 14:45 107 20 143/79 (100) Room Air 11/28/17 14:30 80 20 122/61 (81) Room Air 11/28/17 14:15 86 20 122/66 (84) Room Air 11/28/17 14:00 79 20 158/90 (112) Room Air 11/28/17 13:45 85 20 158/91 (113) Room Air 11/28/17 13:30 91 20 167/92 (117) Room Air 11/28/17 13:15 85 20 159/82 (107) Room Air 11/28/17 13:00 96 18 151/82 (105) Room Air 11/28/17 12:45 85 18 151/82 (105) Room Air 11/28/17 12:30 86 18 154/84 (107) Room Air 11/28/17 12:12 97.3 11/28/17 12:00 85 18 147/84 (105) Room Air 11/28/17 11:00 83 18 138/85 (102) Room Air 11/28/17 10:00 80 18 139/74 (95) Room Air 11/28/17 09:00 86 18 165/92 (116) Room Air 11/28/17 08:00 93 18 141/84 (103) Room Air 11/28/17 07:36 97.6 11/28/17 07:04 78 18 148/77 (100) Room Air 11/28/17 06:04 84 18 158/82 (107) Room Air 11/28/17 05:04 88 18 149/78 (101) Room Air 11/28/17 04:03 90 18 146/86 (106) Room Air 11/28/17 03:04 98.5 85 18 146/85 (105) Room Air I & O 11/29/17 07:00 Intake Total 250 ml Output Total 700 ml Balance -450 ml Labs Microbiology 11/27/17 Urine Culture - Preliminary, Resulted Sent To ELIEZER Beckford DO Nov 29, 2017 02:36
[2017-11-29] MEDS: IBUPROFEN 600 MG (MOTRIN) TAB PO SCH ×2 (04:12→17:26)
[2017-11-29] MEDS: CATHETER FLUSH 10 ML SYR IV SCH ×4 (04:13→21:49)
[2017-11-29] MEDS ORDERED: CATHETER FLUSH 10 ML SYR IV SCH (06:00)
--- NOTE | 2017-11-29 07:51 | Anesthesia-Regional Post-Op ---
Regional Patient Condition Mental Status: Alert, Oriented x3 Circulation: Same as Pre-Op Headache: Absent Sensation: Full Recovery Motor Block: Absent Post Op Complications Complications None Follow Up Care/Instructions Patient Instructions None needed. Anesthesia/Patient Condition Patient is doing well, no complaints, stable vital signs, no apparent adverse anesthesia problems. No complications reported per nursing. D/C home per [facility] Criteria: No MARV PAZ CRNA Nov 29, 2017 07:51
[2017-11-29] MEDS: DOCUSATE SODIUM 100 MG (COLACE) CAP PO SCH ×2 (10:41→21:48)
--- NOTE | 2017-11-29 12:59 | Postpartum Progress Note ---
Post Op Post-operative Day #0 s/p PLTCS, failure to descend/ arrest of descent Subjective: Patient is without complaints. Ambulating, voiding after dover removed. Tolerating a regular diet without nausea or vomiting. Normal lochia. Pain is well controlled with oral pain medications. Passing flatus. breast feeding. Objective: Laboratory Tests Test 11/27/17 19:35 11/27/17 23:55 Range/Units White Blood Count 10.2 4.3-11.0 10^3/uL Red Blood Count 3.88 L 4.35-5.85 10^6/uL Hemoglobin 11.5 11.5-16.0 G/DL Hematocrit 34 L 35-52 % Mean Corpuscular Volume 88 80-99 FL Mean Corpuscular Hemoglobin 30 25-34 PG Mean Corpuscular Hemoglobin Concent 34 32-36 G/DL Red Cell Distribution Width 14.6 H 10.0-14.5 % Platelet Count 241 130-400 10^3/uL Mean Platelet Volume 11.0 H 7.4-10.4 FL Neutrophils (%) (Auto) 76 H 42-75 % Lymphocytes (%) (Auto) 17 12-44 % Monocytes (%) (Auto) 6 0-12 % Eosinophils (%) (Auto) 0 0-10 % Basophils (%) (Auto) 0 0-10 % Neutrophils # (Auto) 7.8 1.8-7.8 X 10^3 Lymphocytes # (Auto) 1.8 1.0-4.0 X 10^3 Monocytes # (Auto) 0.7 0.0-1.0 X 10^3 Eosinophils # (Auto) 0.0 0.0-0.3 10^3/uL Basophils # (Auto) 0.0 0.0-0.1 10^3/uL Urine Color YELLOW Urine Clarity SLIGHTLY CLOUDY Urine pH 6 5-9 Urine Specific [place] 1.015 L 1.016-1.022 Urine Protein 3+ H NEGATIVE Urine Glucose (UA) NEGATIVE NEGATIVE Urine Ketones NEGATIVE NEGATIVE Urine Nitrite POSITIVE H NEGATIVE Urine Bilirubin NEGATIVE NEGATIVE Urine Urobilinogen NORMAL NORMAL MG/DL Urine Leukocyte Esterase 3+ H NEGATIVE Urine RBC (Auto) 2+ H NEGATIVE Urine RBC 0-2 /HPF Urine WBC 10-25 H /HPF Urine Squamous Epithelial Cells 2-5 /HPF Urine Crystals NONE /LPF Urine Bacteria MODERATE H /HPF Urine Casts NONE /LPF Urine Mucus SMALL H /LPF Urine Yeast FEW H /HPF Urine Culture Indicated YES 11/29/17 11/29/17 11/29/17 11/29/17 01:00 01:15 04:00 08:09 Temp 99.5 98.7 98.8 Pulse 116 120 88 87 Resp 18 18 18 18 B/P (MAP) 157/89 (111) 175/85 (115) 116/72 (87) 126/76 (93) Pulse Ox 97 96 95 O2 Delivery Room Air Room Air Room Air Room Air 11/29/17 00:00 Output Total 0 ml Balance 0 ml Microbiology 11/27/17 Urine Culture - Final, Complete See Comments Sent To [facility] Physical Exam: General - Alert and oriented, no apparent distress Abdomen - Soft, appropriately tender to palpation, non-distended, fundus firm at umbilicus Incision - clean, dry and intact; no erythema or induration, no drainage Extremities - no edema, negative Fitz's bilaterally Assessment: 1. post-operative day # 0, status post transverse section. Recovering well, hemodynamically stable Plan: Routine post-operative care. Encourage breast feeding. Encourage ambulation. VTE prophylaxis: SCDs. Ferrous sulfate supplementation. Plan for discharge Monday Vitals - Labs Vital Signs - I&O Vital Signs Date Time Temp Pulse Resp B/P (MAP) Pulse Ox O2 Delivery O2 Flow Rate FiO2 11/29/17 08:09 98.8 87 18 126/76 (93) 95 Room Air 11/29/17 04:00 98.7 88 18 116/72 (87) 96 Room Air 11/29/17 01:15 99.5 120 18 175/85 (115) 97 Room Air 11/29/17 01:00 116 18 157/89 (111) Room Air 11/29/17 00:45 116 18 167/80 (109) Room Air 11/29/17 00:15 99.3 96 18 185/86 (119) 97 Room Air 11/29/17 00:00 91 18 154/85 (108) Room Air 11/28/17 23:45 91 18 150/77 (101) Room Air 11/28/17 23:30 99.3 85 18 141/69 (93) 97 Room Air 11/28/17 23:15 96 18 141/71 (94) Room Air 11/28/17 23:00 86 18 151/71 (97) Room Air 11/28/17 22:45 100 18 134/85 (101) Room Air 11/28/17 22:30 90 18 148/67 (94) 97 Room Air 11/28/17 22:15 99.5 93 18 158/78 (104) 97 Room Air 11/28/17 22:00 93 18 156/79 (104) 97 Room Air 11/28/17 21:45 96 18 164/88 (113) 96 Room Air 11/28/17 21:30 91 18 148/80 (102) 96 Room Air 11/28/17 21:15 90 18 154/74 (100) 97 Room Air 11/28/17 21:00 86 18 159/82 (107) 98 Room Air 11/28/17 20:45 86 18 154/71 (98) 98 Room Air 11/28/17 20:40 83 18 143/77 (99) 98 Room Air 11/28/17 20:35 89 18 139/78 (98) 98 Room Air 11/28/17 20:30 85 18 144/72 (96) 98 Room Air 11/28/17 20:25 95 18 141/73 (95) 98 Room Air 11/28/17 20:20 85 18 138/72 (94) 98 Room Air 11/28/17 20:15 94 18 141/68 (92) 98 Room Air 11/28/17 20:10 84 18 142/72 (95) 99 Room Air 11/28/17 20:05 83 18 141/75 (97) 98 Room Air 11/28/17 20:00 98.9 86 18 142/75 (97) 99 Room Air 11/28/17 19:55 84 18 150/79 (102) 99 Room Air 11/28/17 19:45 83 18 146/73 (97) 98 Room Air 11/28/17 19:30 80 18 142/72 (95) 98 Room Air 11/28/17 19:15 72 18 139/69 (92) 98 Room Air 11/28/17 19:00 82 18 132/5 (47) 98 Room Air 11/28/17 18:45 85 18 134/66 (88) 98 Room Air 11/28/17 18:30 79 18 136/66 (89) 97 Room Air 11/28/17 18:25 87 20 139/72 (94) 97 Room Air 11/28/17 18:20 94 20 136/72 (93) 98 Room Air 11/28/17 18:15 97.9 90 18 136/66 (89) 97 Room Air 11/28/17 18:10 86 20 137/67 (90) 97 Room Air 11/28/17 18:05 87 20 137/68 (91) 98 Room Air 11/28/17 18:00 83 18 157/77 (103) 98 Room Air 11/28/17 17:55 87 20 172/79 (110) 98 Room Air 11/28/17 17:50 78 20 156/81 (106) 99 Room Air 11/28/17 17:45 18 Room Air 11/28/17 17:30 93 18 169/85 (113) Room Air 11/28/17 17:15 96 18 166/92 (116) Room Air 11/28/17 17:00 82 18 162/89 (113) Room Air 11/28/17 16:45 18 Room Air 11/28/17 16:30 85 18 147/76 (99) Room Air 11/28/17 16:15 82 18 144/74 (97) Room Air 11/28/17 16:00 80 18 145/76 (99) Room Air 11/28/17 15:45 88 18 138/81 (100) Room Air 11/28/17 15:30 85 18 147/81 (103) Room Air 11/28/17 15:15 90 18 157/89 (111) Room Air 11/28/17 15:00 82 18 140/76 (97) Room Air 11/28/17 14:45 107 20 143/79 (100) Room Air 11/28/17 14:30 80 20 122/61 (81) Room Air 11/28/17 14:15 86 20 122/66 (84) Room Air 11/28/17 14:00 79 20 158/90 (112) Room Air 11/28/17 13:45 85 20 158/91 (113) Room Air 11/28/17 13:30 91 20 167/92 (117) Room Air 11/28/17 13:15 85 20 159/82 (107) Room Air 11/28/17 13:00 96 18 151/82 (105) Room Air I & O 11/29/17 07:00 Intake Total 1450 ml Output Total 1600 ml Balance -150 ml Labs Microbiology 11/27/17 Urine Culture - Final, Complete See Comments Sent To ELIEZER Beckford DO Nov 29, 2017 12:59
[2017-11-29] MEDS ORDERED: ACHD5005 PO (13:01)
[2017-11-29] MEDS ORDERED: IBUP-844 PO (13:01)
--- NOTE | 2017-11-29 13:03 | Discharge Inst-Women's Service ---
Discharge Inst-Women's Serv Depart Medication/Instructions New, Converted or Re-Newed RX: RX on Chart Final Diagnosis failure to descend Primary low transverse section Consults/Follow Up Additional Follow Up: Yes (1 week for incision check and 6 weeks for post exam with Dr. Mackey) Activity Activity: Activity as Tolerated Driving Instructions: No Driving for 1 Week NO SMOKING: NO SMOKING Nothing Inside Vagina: No Douching, No [place], No Tampons Diet Discharge Diet: No Restrictions Symptoms to Report to : Swelling Increased, Bleeding Excessive, Pain Increased, Fever Over 101 Degrees F, Vaginal Bleeding Increase, Cramps in Feet or Legs, Vaginal Discharge Foul For Any Problems or Questions: Contact Your Physician Skin/Wound Care Infection Signs and Symptoms: Increased Redness, Foul Odor of Wound, Increased Drainage, Skin Itchy or Has a Rash, Increased Swelling, Temperature Above 101 F Operative Area Clean and Dry: Keep Incision Clean/Dry Stitches/[place]az[place]/Dermabond: Dermabond Bathing Instructions: ELIEZER Bean DO Nov 29, 2017 1:03 pm
[2017-11-30] VITALS: BP 119/69
[2017-11-30] MEDS: IBUPROFEN 600 MG (MOTRIN) TAB PO SCH ×4 (03:54→19:56)
[2017-11-30 04:00] VITALS: BP 138/87
[2017-11-30 06:07] LABS: BASOPHILS % (AUTO) 0 % (0-10); EOSINOPHILS # (AUTO) 0.1 10^3/uL (0.0-0.3); EOSINOPHILS % (AUTO) 1 % (0-10); HEMATOCRIT 26 % (35-52); HEMOGLOBIN 8.7 G/DL (11.5-16.0); LYMPHOCYTES # (AUTO) 2.9 X 10^3 (1.0-4.0); LYMPHOCYTES % (AUTO) 22 % (12-44); MEAN CORPUSCULAR HEMOGLOBIN 30 PG (25-34); MEAN CORPUSCULAR HGB CONC 33 G/DL (32-36); MEAN CORPUSCULAR VOLUME 90 FL (80-99); MEAN PLATELET VOLUME 10.6 FL (7.4-10.4); MONOCYTES # (AUTO) 0.8 X 10^3 (0.0-1.0); MONOCYTES % (AUTO) 6 % (0-12); NEUTROPHILS # (AUTO) 9.4 X 10^3 (1.8-7.8); NEUTROPHILS % (AUTO) 71 % (42-75); PLATELET COUNT 207 10^3/uL (130-400); RED BLOOD COUNT 2.89 10^6/uL (4.35-5.85); RED CELL DISTRIBUTION WIDTH 15.3 % (10.0-14.5); WHITE BLOOD COUNT 13.2 10^3/uL (4.3-11.0)
[2017-11-30] MEDS: CATHETER FLUSH 10 ML SYR IV SCH ×2 (06:19→13:58)
[2017-11-30 08:00] VITALS: BP 132/78
[2017-11-30] MEDS: DOCUSATE SODIUM 100 MG (COLACE) CAP PO SCH ×2 (08:10→19:55)
--- NOTE | 2017-11-30 11:04 | Postpartum Progress Note ---
Note Note Day # 1 Subjective: Patient is without complaints. Ambulating, voiding. Tolerating a regular diet without nausea or vomiting. Normal lochia. Pain is well controlled with oral pain medications. Objective: Vital Sign - Last 24 Hours 11/29/17 11/29/17 11/29/17 11/30/17 13:18 17:12 20:00 00:00 Temp 97.1 98.2 98.2 98.2 Pulse 79 76 86 87 Resp 18 16 18 16 B/P (MAP) 113/70 (84) 136/72 (93) 122/75 (91) 119/69 (86) Pulse Ox 96 97 96 98 O2 Delivery Room Air Room Air Room Air Room Air 11/30/17 11/30/17 04:00 08:00 Temp 97.8 97.5 Pulse 81 78 Resp 18 22 B/P (MAP) 138/87 (104) 132/78 (96) Pulse Ox 96 95 O2 Delivery Room Air Room Air Intake and Output 11/29/17 11/29/17 11/30/17 15:00 23:00 07:00 Intake Total 300 ml 240 ml 640 ml Output Total 600 ml 950 ml Balance -300 ml 240 ml -310 ml Physical Exam: General - Alert and oriented, no apparent distress Abdomen - Soft, appropriately tender to palpation, non-distended, fundus firm at umbilicus Extremities - no edema, negative Fitz's bilaterally Incision- c/d/i Assessment: POD 1 PLTCS Acute blood loss anemia Plan: Routine care. Encourage breast feeding. Encourage ambulation. Ferrous sulfate supplementation. Plan for discharge tomorrow Vitals - Labs Vital Signs - I&O Vital Signs Date Time Temp Pulse Resp B/P (MAP) Pulse Ox O2 Delivery O2 Flow Rate FiO2 11/30/17 08:00 97.5 78 22 132/78 (96) 95 Room Air 11/30/17 04:00 97.8 81 18 138/87 (104) 96 Room Air 11/30/17 00:00 98.2 87 16 119/69 (86) 98 Room Air 11/29/17 20:00 98.2 86 18 122/75 (91) 96 Room Air 11/29/17 17:12 98.2 76 16 136/72 (93) 97 Room Air 11/29/17 13:18 97.1 79 18 113/70 (84) 96 Room Air I & O 11/30/17 07:00 Intake Total 1180 ml Output Total 1550 ml Balance -370 ml Labs Laboratory Tests 11/30/17 05:32: White Blood Count 13.2H, Red Blood Count 2.89L, Hemoglobin 8.7#L, Hematocrit 26L , Mean Corpuscular Volume 90, Mean Corpuscular Hemoglobin 30, Mean Corpuscular Hemoglobin Concent 33, Red Cell Distribution Width 15.3H, Platelet Count 207, Mean Platelet Volume 10.6H, Neutrophils (%) (Auto) 71, Lymphocytes (%) (Auto) 22 , Monocytes (%) (Auto) 6, Eosinophils (%) (Auto) 1, Basophils (%) (Auto) 0, Neutrophils # (Auto) 9.4H, Lymphocytes # (Auto) 2.9, Monocytes # (Auto) 0.8, Eosinophils # (Auto) 0.1, Basophils # (Auto) 0.0 Microbiology 11/27/17 Urine Culture - Final, Complete See Comments Sent To YOEL Valdez DO Nov 30, 2017 11:03 am
[2017-11-30 12:00] VITALS: BP 129/82
[2017-11-30] MEDS: D5 LR IV SOLUTION 1,000 ML IV SCH ×3 (14:17→20:45)
[2017-11-30 17:09] VITALS: BP 136/79
[2017-11-30 20:00] VITALS: BP 139/91
[2017-12-01 02:00] VITALS: BP 127/87
[2017-12-01] MEDS: IBUPROFEN 600 MG (MOTRIN) TAB PO SCH ×3 (02:00→14:47)
[2017-12-01 08:00] VITALS: BP 143/88
[2017-12-01] MEDS: DOCUSATE SODIUM 100 MG (COLACE) CAP PO SCH (08:21)
--- NOTE | 2017-12-01 08:36 | Postpartum Progress Note ---
Note Note Day # 3 Subjective: Patient is without complaints. Ambulating, voiding. Tolerating a regular diet without nausea or vomiting. Normal lochia. Pain is well controlled with oral pain medications. Objective: Vital Sign - Last 24 Hours 11/30/17 11/30/17 11/30/17 12/01/17 12:00 17:09 20:00 02:00 Temp 97.5 98.0 98.1 98.1 Pulse 72 77 84 76 Resp 16 18 18 19 B/P (MAP) 129/82 (98) 136/79 (98) 139/91 (107) 127/87 (100) Pulse Ox 96 98 97 98 O2 Delivery Room Air Room Air Room Air Room Air 12/01/17 08:00 Temp 97.2 Pulse 70 Resp 20 B/P (MAP) 143/88 (106) Pulse Ox 98 O2 Delivery Room Air Intake and Output 11/30/17 11/30/17 12/01/17 15:00 23:00 07:00 Intake Total 1200 ml 1200 ml Output Total 2600 ml 1500 ml Balance -1400 ml -300 ml Physical Exam: General - Alert and oriented, no apparent distress Abdomen - Soft, appropriately tender to palpation, non-distended, fundus firm at umbilicus Extremities - no edema, negative Fitz's bilaterally Incision- c/d/i Assessment: POD 2 PLTCS Plan: Routine care. Encourage breast feeding. Encourage ambulation. Ferrous sulfate supplementation. Plan for discharge today Vitals - Labs Vital Signs - I&O Vital Signs Date Time Temp Pulse Resp B/P (MAP) Pulse Ox O2 Delivery O2 Flow Rate FiO2 12/01/17 08:00 97.2 70 20 143/88 (106) 98 Room Air 12/01/17 02:00 98.1 76 19 127/87 (100) 98 Room Air 11/30/17 20:00 98.1 84 18 139/91 (107) 97 Room Air 11/30/17 17:09 98.0 77 18 136/79 (98) 98 Room Air 11/30/17 12:00 97.5 72 16 129/82 (98) 96 Room Air I & O 12/01/17 07:00 Intake Total 2400 ml Output Total 4100 ml Balance -1700 ml Labs Microbiology 11/27/17 Urine Culture - Final, Complete See Comments Sent To YOEL Valdez DO Dec 01, 2017 8:36 am
[2017-12-01] MEDS ORDERED: SIMETHICONE 80 MG (MYLICON) CHEW ONE (09:30)
[2017-12-01] MEDS ORDERED: SIMETHICONE 80 MG (MYLICON) CHEW PO SCH (13:00)
[2017-12-01 14:00] VITALS: BP 143/84
[2017-12-01 19:10] VITALS: BP 143/84
--- NOTE | 2017-12-27 18:08 | Discharge Summary ---
Diagnosis/Chief Complaint Date of Admission Nov 27, 2017 at 19:24 Date of Discharge Dec 01, 2017 at 19:10 Discharge Date: Dec 01, 2017 Admission Diagnosis Admission Diagnosis Induction of labor for post dates (40 6/7) Discharge Diagnosis Same failure to descend Persistent OP presentation meconium stained fluid acute blood loss anemia Reason Hospital Visit Patient of Dr. Mackey's who was admitted for post date induction. After complete dilation she pushed for > 2 hours before I was consulted for failure to descend. section was done without complications. Discharge Summary Hospital Course Hospital Course She was admitted to women's services following the section and her post course was uncomplicated. Post operative hemoglobin was 8.7 and iron was started. Transfusion was not needed. Post operative pain management was with toradol and dilaudid and then motrin and Lortab. She had a TAP block by anesthesia for post operative pain management. She was discharged to home on day 3 in stable condition Procedures None. Discharge Physical Examination Allergies: Coded Allergies: No Known Drug Allergies (Unverified , 11/27/17) Vitals & I&Os Blood pressures labile. DC blood 143/84 T 97.6 General Appearance: Alert, Oriented X3 Respiratory: Clear to Auscultation Cardiovascular: Regular Rate, Normal S1, Normal S2 Abdominal: Normal Bowel Sounds, Other (Inc c/d/i) Discussion & Recommendations Routine post operative course Discharge Home Medications Reviewed and agree with Discharge Medication list on patient's Discharge Instruction sheet Condition at Discharge stable Instructions to Patient/Family Please see electronic discharge instructions given to patient. Clinical Quality Measures DVT/VTE Risk/Contraindication: Risk Factor Score Per Nursin RFS Level Per Nursing on Admit: 1=Low/No VTE PPX ELIEZER ALVA DO Dec 27, 2017 18:08
== END 2017-12-01 19:10 | disposition home or self-care (01) | DRG 765 ==
LOC: LDRP 19:24 → WS 11-29 03:45
PROVIDERS: ADMIT Family Medicine; ATTEND Family Medicine
PROC: 3E0P7GC Introduction of Other Therapeutic Substance into Female Reproductive, Via Natural or Artificial Opening (ICD-10-PCS; 2017-11-27)
PROC: 10D00Z1 Extraction of Products of Conception, Low, Open Approach (ICD-10-PCS; principal; 2017-11-29 01:33)
DX: O48.0 Post-term pregnancy (principal); O62.1 Secondary uterine inertia; O64.0XX0 Obstructed labor due to incomplete rotation of fetal head, not applicable or unspecified; O90.81 Anemia of the puerperium; D62 Acute posthemorrhagic anemia; Z3A.40 40 weeks gestation of pregnancy; Z37.0 Single live birth
CPT/HCPCS: 36415; 81000; 85025; 86850; 86900; 86901; 87088; 94664

== ENCOUNTER 2020-05-06 06:33 | Outpatient (RCR) | payer MEDICAID ==
[~2020-05-06] VITALS: Ht 167 cm; Wt 113.6 kg
[~2020-05-06 06:33] MED LIST: ACHD5005 PO; IBUP-844 PO; PREN1TAB19 PO
[2020-05-06] MEDS ORDERED: MULT-1136 PO (14:15)
== END 2020-05-06 14:29 | disposition home or self-care (01) ==
LOC: PREOP 06:33
PROVIDERS: ATTEND Surgery
DX: Z01.818 Encounter for other preprocedural examination (principal); K80.80 Other cholelithiasis without obstruction

== ENCOUNTER 2020-05-13 08:40 | Day surgery (SDC) | payer MEDICAID ==
[2020-05-13] VITALS (11 sets, daily range): BP systolic 113–131; BP diastolic 56–77
[~2020-05-13] VITALS: Ht 167 cm; Wt 113.6 kg
[~2020-05-13 08:40] MED LIST changes: +MULT-1136 PO
[2020-05-13] MEDS ORDERED: ceFAZolin 2 GM IV Premixed 50 ML IV ONE (08:45)
[2020-05-13] MEDS: LACTATED RINGERS 1,000 ML IV PRN ×2 (09:05→11:59)
[2020-05-13 09:13] LABS: BASOPHILS % (AUTO) 1 % (0-10); EOSINOPHILS # (AUTO) 0.1 10^3/uL (0.0-0.3); EOSINOPHILS % (AUTO) 2 % (0-10); HEMATOCRIT 41 % (35-52); HEMOGLOBIN 12.9 g/dL (11.5-16.0); LYMPHOCYTES # (AUTO) 2.3 10^3/uL (1.0-4.0); LYMPHOCYTES % (AUTO) 36 % (12-44); MEAN CORPUSCULAR HEMOGLOBIN 28 pg (25-34); MEAN CORPUSCULAR HGB CONC 32 g/dL (32-36); MEAN CORPUSCULAR VOLUME 88 fL (80-99); MEAN PLATELET VOLUME 9.5 fL (9.0-12.2); MONOCYTES # (AUTO) 0.4 10^3/uL (0.0-1.0); MONOCYTES % (AUTO) 7 % (0-12); NEUTROPHILS # (AUTO) 3.6 10^3/uL (1.8-7.8); NEUTROPHILS % (AUTO) 56 % (42-75); PLATELET COUNT 340 10^3/uL (130-400); WHITE BLOOD COUNT 6.5 10^3/uL (4.3-11.0)
[2020-05-13] MEDS ORDERED: ROCURONIUM 10 MG/ML 5 ML SYRINGE IV ONE ×2 (09:39→12:01)
[2020-05-13] MEDS ORDERED: LIDOCAINE PF 2% 5 ML (XYLOCAINE) VIAL ONE (09:39)
[2020-05-13] MEDS ORDERED: proPOfol 200 MG/20 ML (DIPRIVAN) VIAL IV ONE (09:39)
[2020-05-13] MEDS ORDERED: ONDANSETRON 4 MG/2 ML (SDV) Z0FRAN ONE (09:39)
[2020-05-13] MEDS ORDERED: MIDAZOLAM 2 MG/2 ML (VERSED) VIAL ONE (09:40)
[2020-05-13] MEDS ORDERED: fentaNYL INJECTION 100 MCG/2 ML AMP ONE ×3 (09:40→12:14)
[2020-05-13] MEDS ORDERED: SEVOFLURANE (ULTANE) 15 ML INHAL SOLN ONE (09:42)
[2020-05-13] MEDS ORDERED: LIDOCAINE/EPI 1%-1:100,000 (XYLOCAINE) 20ML ONE (10:50)
--- NOTE | 2020-05-13 11:16 | Progress Note-Pre Operative ---
Pre-Operative Progress Note H&P Reviewed The H&P was reviewed, patient examined and no changes noted. Time Seen by Provider: 11:10 Date H&P Reviewed: May 13, 2020 Time H&P Reviewed: 11:11 Pre-Operative Diagnosis: Cholelithiasis/Cholecystitis JULIAN CHI DO May 13, 2020 11:16
[2020-05-13] MEDS ORDERED: NEOSTIGMINE 3 MG/3 ML VIAL ONE (11:56)
[2020-05-13] MEDS ORDERED: PHENYLEPHRINE 100 MCG/ML 10 ML (ANESTHESIA) SYR ONE (11:57)
[2020-05-13] MEDS ORDERED: GLYCOPYRROLATE 0.2 MG/ML (ROBINUL) 2 ML VIAL ONE (11:57)
[2020-05-13] MEDS ORDERED: HYDR-4226 PO (12:01)
--- NOTE | 2020-05-13 12:01 | Progress Note-Post Operative ---
Post-Operative Progess Note Surgeon (s)/Turkey Egg Gatherer (s) Surgeon JULIAN CHI DO Turkey Egg Gatherer: Yenny Pre-Operative Diagnosis Cholelithiasis/Cholecystitis Post-Operative Diagnosis same with questionable mass in duodenal wall Procedure & Operative Findings Date of Procedure 05/13/20 Procedure Performed/Findings PROCEDURE: Laparoscopic cholecystectomy with intraoperative cholangiogram. COMPLICATIONS: None. PROCEDURE: The patient was taken to the operating suite and was prepped and draped in sterile fashion. A surgical pause was performed. Just superior to the umbilicus, a 12 mm incision was made. Dissection was taken down to the fascia, which was then scored and grasped with a Sonu and the abdomen was then entered. A 0 Vicryl suture was placed in a xngiyn-fu-hakph fashion and a Dodd trocar was placed and secured. Pneumoperitoneum was achieved. A 5mm trochar place in the subxyphoid and 2 in the right upper quadrant. The gallbladder was then grasped and elevated. The cystic duct, and cystic artery were then dissected out. Clip was placed on the distal portion of the cystic duct which was then partially transected. An arrow catheter was inserted into the duct. The cholangiogram was then performed. No filing defects and contrast made its way into the duodenum. Catheter removed. Clips were placed on proximal portion of the cystic duct and then the duct was then transected. Clips were placed along the proximal and distal portion of the cystic artery which was then transected. Hook cautery was used to dissect the gallbladder from the gallbladder fossa achieving hemostasis. The gallbladder was placed in an Endobag and removed through the 12 mm trocar site. The abdomen was then reinspected. Copious amounts of irrigation were used to irrigate the abdomen and there were no signs of active bleeding. Hemostasis had been achieved. The 12 mm fascial defect was then closed with 0 Vicryl suture that had been placed in a vxdoyy-lp-iposu fashion. The abdomen was then desufflated, the trocars were removed. The abdomen was then washed and dried. The skin was then closed using 4-0 Monocryl in a subcuticular fashion. The abdomen was washed and dried and Skin Affix was place over incisions. Patient tolerated the procedure well without any complications and was taken to the recovery room in stable condition. Anesthesia Type GET Estimated Blood Loss Estimated blood loss (mL): scant Specimens/Packing Specimens Removed GB and contents JULIAN CHI 9, 2020 12:01
--- NOTE | 2020-05-13 12:02 | Discharge Inst-Surgical ---
Discharge Inst-Surgical Depart Medication/Instructions New, Converted or Re-Newed RX: RX Given to Pt/Family Patient Instructions Follow up Appt: Make appointment for 1 week. [phone] Instructions: No lifting greater than 20 pounds. No strenuous activity. May shower in 24 hours, no tub bath or soaking. Use incentive spirometer at home as directed. No Smoking Skin/Wound Care: May remove bandages in am. You need to leave the Dermabond on incision it will fall off on it's own. Symptoms to Report: Appetite Changes, Extremity Discoloration, Numbness/Tingling, Swelling Increased, Bleeding Excessive, Eyesight Changes, Pain Increased, Urine Color Change, Constipation(Persistent), Fever over 101 degree F, Pain/Pressure in chest, Urinating Difficulty, Cough Up/Vomit Blood, Heart Beat Irreg/Pounding, Pain/Pressure in jaw, Cramps in feet or legs, Lightheadedness, Pain/Pressure in shoulder, Diarrhea(Persistent), Memory Changes Suddenly, Questions/Concerns, Weight gain consecutive days, Dizziness/Fainting, Nausea/Vomiting, Shortness of Breath, Weight gain over 2 pounds If questions or concerns contact your physician Or seek help at emergency department. Activity Activity as Tolerated: Yes Activity Instructions: Avoid Stress to Incision Driving Instructions: No Driving/Refer to Diet Discharge Diet: Avoid Fatty Foods, Low Fat/Low Cholesterol Diet After 24 Hours: Clear Liquid if Nauseous If Any Problems/Questions/Issu: Contact Your Physician, Go to Emergency Room Skin/Wound Care Infection Signs and Symptoms: Increased Redness, Foul Odor of Wound, Increased Drainage, Skin Itchy or Has a Rash, Increased Swelling, Temperature Above 101 F Wound Care Comment: heating pad to shoulder or neck tonight for pain Bathing Instructions: Shower Stitches/[place]/Dermabond Dis: Dermabond Ice Pack: Ice On and Off Site JULIAN CHI DO May 13, 2020 12:02
[2020-05-13] MEDS ORDERED: KETOROLAC 30 MG/ML VIAL ONE (12:14)
[2020-05-13] MEDS ORDERED: KETOROLAC 30 MG/ML VIAL IVP ONE (12:15)
[2020-05-13] MEDS ORDERED: ONDANSETRON 4 MG/2 ML (SDV) Z0FRAN IVP PRN (12:15)
[2020-05-13] MEDS ORDERED: fentaNYL INJECTION 100 MCG/2 ML AMP IVP ONE (12:15)
[2020-05-13] MEDS ORDERED: MEPERIDINE (DEMEROL) INJ 50 MG/ML IVP ONE (12:15)
[2020-05-13] MEDS ORDERED: HYDROmorphone 2 MG/ML VIAL (DILAUDID) IV ONE (12:15)
[2020-05-13] MEDS ORDERED: PROMETHAZINE INJ 25 MG/ML (PHENERGAN) AMP IVP ONE (12:15)
--- NOTE | 2020-05-13 12:39 | Diagnostic Imaging Report ---
INDICATION: Laparoscopic cholecystectomy. COMPARISON: None Total fluoroscopy time: 13 seconds Total number of fluoroscopic images saved: 84 FINDINGS: Multiple intraoperative and digital subtraction images of the right upper abdominal quadrant were obtained during intraoperative cholangiogram. Images provided show contrast opacifying the common bile duct and common hepatic duct. There is extension of contrast into the small bowel. Note is also made of mild extravasation contrast within the right upper abdominal quadrant. Please note, interpreting radiologist was not present during the procedure. IMPRESSION: 1. Fluoroscopic guidance provided during intraoperative cholangiogram. Dictated by: Dictated on workstation # [id number]
--- NOTE | 2020-05-13 14:00 | Anesthesia-General Post-Op ---
General Patient Condition Mental Status/LOC: Same as Preop Cardiovascular: Satisfactory Nausea/Vomiting: Absent Respiratory: Satisfactory Pain: Controlled Complications: Absent Post Op Complications Complications None Follow Up Care/Instructions Patient Instructions None needed. Anesthesia/Patient Condition Patient Condition Patient is doing well, no complaints, stable vital signs, no apparent adverse anesthesia problems. No complications reported per nursing. DENIA CHAPPELL CRNA May 13, 2020 14:00
== END 2020-05-13 14:25 | disposition home or self-care (01) ==
LOC: SDC 08:40
PROVIDERS: ATTEND Surgery
DX: K80.10 Calculus of gallbladder with chronic cholecystitis without obstruction (principal); E66.9 Obesity, unspecified; Z68.41 Body mass index [BMI] 40.0-44.9, adult; Z79.899 Other long term (current) drug therapy; Z82.49 Family history of ischemic heart disease and other diseases of the circulatory system
CPT/HCPCS: 36415; 76000; 84703; 85025; 87081; 88304

== ENCOUNTER → 2020-05-21 | Outpatient (CLI) | payer MEDICAID ==
[~2020-05-21] MED LIST changes: +HYDR-4226 PO
== END ==
LOC: LAB 15:32
PROVIDERS: ATTEND Surgery
DX: R19.5 Other fecal abnormalities (principal)

== ENCOUNTER 2020-06-09 15:30 | Outpatient (RCR) | payer MEDICAID ==
[~2020-06-09] VITALS: Ht 167.7 cm; Wt 114.1 kg
[2020-06-09] MEDS ORDERED: bcp TD (16:14)
== END 2020-06-09 16:24 | disposition home or self-care (01) ==
LOC: PREOP 15:30
PROVIDERS: ATTEND Surgery
DX: Z01.818 Encounter for other preprocedural examination (principal)

== ENCOUNTER 2020-06-15 08:53 | Day surgery (SDC) | payer MEDICAID ==
[~2020-06-15] VITALS: Ht 167.7 cm; Wt 114.1 kg
[2020-06-15] VITALS (7 sets, daily range): BP systolic 115–128; BP diastolic 65–78
[~2020-06-15 08:53] MED LIST changes: +bcp TD
[2020-06-15] MEDS ORDERED: LACTATED RINGERS 1,000 ML IV ONE (08:58)
[2020-06-15] MEDS ORDERED: PROPOFOL INJECTION 50 ML IV ONE (09:01)
[2020-06-15] MEDS ORDERED: MIDAZOLAM 2 MG/2 ML (VERSED) VIAL ONE (09:01)
--- NOTE | 2020-06-15 09:03 | Progress Note-Pre Operative ---
Pre-Operative Progress Note H&P Reviewed The H&P was reviewed, patient examined and no changes noted. Time Seen by Provider: 09:03 Date H&P Reviewed: Jun 15, 2020 Time H&P Reviewed: 09:02 Pre-Operative Diagnosis: Duodenal mass JULIAN CHI DO Jun 15, 2020 09:03
[2020-06-15] MEDS ORDERED: LACTATED RINGERS 1,000 ML IV STA (09:05)
[2020-06-15] MEDS ORDERED: HURRICAINE EXT TUBE (BENZOCAINE) XX PRN (09:15)
--- NOTE | 2020-06-15 09:58 | Endoscopy Discharge Instruct ---
Endo Procedure/Findings Findings 1.: Gastritis Discharge Instructions - Activity: You might feel a little sleepy until tomorrow. This is due to the medicine you received to relax you. Until tomorrow, you should: NOT drive a car, operate machinery or power tools. NOT drink any alcoholic beverages. NOT make any important decisions or sign importortant papers. Do not return to work until tomorrow, unless otherwise instructed. Resume previous activities tomorrow. Diet: Start by taking liquids. If you tolerate liquids, advance to solid food. 1.: EGD in 1 year Notify Physician - If you experience excessive bleeding, unusual abdominal pain, fever, or chest pain, contact your doctor immediately. JULIAN CHI DO Jun 15, 2020 09:58
--- NOTE | 2020-06-15 09:58 | Progress Note-Post Operative ---
Post-Operative Progess Note Surgeon (s)/Translator Interpreter (s) Surgeon JULIAN CHI DO Translator Interpreter: none Pre-Operative Diagnosis Duodenal mass Post-Operative Diagnosis Same Duodenal polyp Gastritis Procedure & Operative Findings Date of Procedure 06/15/20 Procedure Performed/Findings EGD with bx Anesthesia Type IV sedation by DIRECTOR INSURANCE Estimated Blood Loss Estimated blood loss (mL): scant Specimens/Packing Specimens Removed duodenal polyp duodenal bx antral bx GE jxn bx JULIAN CHI DO Jun 15, 2020 09:58
--- NOTE | 2020-06-15 10:03 | Anesthesia-General Post-Op ---
MAC Patient Condition Mental Status/LOC: Same as Preop Cardiovascular: Satisfactory Nausea/Vomiting: Absent Respiratory: Satisfactory Pain: Controlled Complications: Absent Post Op Complications Complications None Follow Up Care/Instructions Patient Instructions None needed. Anesthesiology Discharge Order Discharge Order Patient is doing well, no complaints, stable vital signs, no apparent adverse anesthesia problems. No complications reported per nursing. DENIA CHAPPELL CRNA Jun 15, 2020 10:03
--- NOTE | 2020-06-15 22:17 | OPERATIVE REPORT ---
DATE OF SERVICE: PREOPERATIVE DIAGNOSIS: Duodenal mass. POSTOPERATIVE DIAGNOSES: Duodenal mass, duodenal polyp and gastritis. PROCEDURE: EGD with biopsy. SURGEON: Kenneth Izaguirre DO DRUGLESS PHYSICIAN: None. ANESTHESIA: IV sedation by the DRY KILN BURNER. SPECIMEN: Biopsy from the duodenum as well as biopsy from the antrum and the GE junction. BLOOD LOSS: Scant. FLUIDS: Per anesthesia. POSTOPERATIVE CONDITION: Stable. INDICATION FOR PROCEDURE: The patient is a 25-year-old female, who had a recent laparoscopic cholecystectomy and saw what looked like a mass, right near the pylorus, unsure what this was and so needed to do an EGD, so we could see this coming from the inside. FINDINGS: The patient had a duodenal polyp and then an area which may have been the duodenum pushing out of the mass, but did not really look like anything except for the duodenal wall. She also had some mild gastritis. PROCEDURE NOTE: After informed consent was obtained, the patient was brought to the endoscopy suite, placed in bed in left lateral decubitus position. She was administered IV sedation by the DRY KILN BURNER who then monitored her vitals the entire time, heart rate, blood pressure and pulse ox and the scope was inserted down the mouth through the esophagus and into the stomach, pushed pass this into the duodenum. Second and third portion looked okay and the first portion, saw small polyp and then what looked like a bulging area, remove this polyp with biopsy and then did a biopsy of this bulging area, pulled back into the antrum and did a biopsy of the antrum. Retroflexed the scope, did not really see hiatal hernia or any other pathology. Pulled the scope up into the GE junction, did a biopsy at this point then pulled the scope up the esophagus and out the mouth. The patient tolerated the procedure. She was recovered in endoscopy suite. Job ID: [id number] DocumentID: [id number] Dictated Date: 06/15/2020 15:56:33 Aviation Electronic Warfare Operator Date: 06/15/2020 22:16:56 Dictated By: KENNETH IZAGUIRRE DO
== END 2020-06-15 10:45 | disposition home or self-care (01) ==
LOC: ENDO 08:53
PROVIDERS: ATTEND Surgery
DX: K31.7 Polyp of stomach and duodenum (principal); K20.90 Esophagitis, unspecified without bleeding; K29.70 Gastritis, unspecified, without bleeding; Q40.2 Other specified congenital malformations of stomach; J45.909 Unspecified asthma, uncomplicated; D64.9 Anemia, unspecified; E66.01 Morbid (severe) obesity due to excess calories; Z68.41 Body mass index [BMI] 40.0-44.9, adult; Z79.51 Long term (current) use of inhaled steroids
CPT/HCPCS: 84703; 88305